=== PATIENT | female | born 1960 | race Caucasian/White ===

== ENCOUNTER 2016-06-13 17:27 | Emergency (ER) | payer BC ==
[2016-06-13 18:14] VITALS: TEMP 97.8
--- NOTE | 2016-06-13 18:33 | ED ---
General Adult HPI - General Chief complaint: Burn/Smoke Inhalation Stated complaint: Burn, [facility] Time Seen by Provider: 06/13/16 18:05 Source: patient, RN notes reviewed Mode of arrival: ambulatory Limitations: no limitations - History of Present Illness Initial comments: This is a 55-year-old female presents with a burn to the right hand from hot water and coffee grounds. Patient states she was emptying the coffee pot when hot water from the coffee tray spilled on the right hand. Patient denies any numbness weakness or tingling. Patient has noticed small blisters to the palmar aspect of the right hand near the second MCP joint. Patient denies any recent fever, chills, shortness breath, chest pain, abdominal pain, nausea/ vomiting/diarrhea, back pain, numbness, tingling, hematuria, headache, or visual changes, or any other complaints. Review of Systems ROS Statement: Those systems with pertinent positive or pertinent negative responses have been documented in the HPI. ROS Other: All systems not noted in ROS Statement are negative. Past Medical History Past Medical History: No Reported History History of Any Multi-Drug Resistant Organisms: None Reported Additional Past Surgical History / Comment(s): thyroidectomy, CA of thyroid Past Psychological History: No Psychological Hx Reported Smoking Status: Never smoker Past Alcohol Use History: Occasional Past Drug Use History: None Reported General Exam - General Exam Comments Initial Comments: General: The patient is awake and alert, in no distress, and does not appear acutely ill. Neck: The neck is supple, there is no tenderness or JVD. Cardiovascular: There is a regular rate and rhythm. No murmur, rub or gallop is appreciated. Respiratory: Lungs are clear to auscultation, respirations are non-labored, breath sounds are equal. No wheezes, stridor, rales, or rhonchi. Musculoskeletal: Normal ROM, no tenderness. Strength 5/5. Sensation intact. Radial Pulses equal bilaterally 2+. Neurological: A&O x 3. CN II-XII intact, There are no obvious motor or sensory deficits. Coordination appears grossly intact. Speech is normal. Skin: There is mild erythema to the palmar aspect of the right hand just over the second and third MCP joints. There is also mild erythema over the second and third MCP joints on the dorsal aspect of the right hand. There is a small blister to the palmar aspect of the right hand approximately 0.5 cm. There is no drainage or open skin. Fink are less than 1% total body surface area. Skin is warm and dry. Psychiatric: Cooperative, appropriate mood & affect, normal judgment. Limitations: no limitations Course Vital Signs 06/13/16 18:13 Temperature 97.8 F Pulse Rate 82 Respiratory 16 Rate Blood Pressure 131/80 O2 Sat by Pulse 98 Oximetry Medical Decision Making - Medical Decision Making This is a 55-year-old female presents with a burn to the right hand. On physical exam There is mild erythema to the palmar aspect of the right hand just over the second and third MCP joints. There is also mild erythema over the second and third MCP joints on the dorsal aspect of the right hand. There is a small blister to the palmar aspect of the right hand approximately 0.5 cm. There is no drainage or open skin. Skin is warm and dry. Fink are less than 1% total body surface area. Discussed with the patient that this is consistent with a superficial partial thickness burn due to the blistering. Patient has ALLERGY to sulfa drugs so I discussed topical Neosporin to the area and to keep the burn covered with gauze. Patient has used Neosporin in the past and has no reaction with this. I discussed pain medication with the patient and she agrees that Tylenol and Motrin be sufficient for her pain. Discussed signs and symptoms of infection. Discussed return parameters. Discussed that patient follow up with her primary care physician in the next 1-2 days.Discussed that patient should follow up with PCP in one to 2 days or return to the [facility] for any worsening symptoms or for any further concerns. Patient and was also present in the room were receptive to this plan and patient will be discharged home. Disposition Clinical Impression: Superficial partial thickness burn of palm, Superficial partial thickness burn of digit of hand Disposition: HOME SELF-CARE Condition: Good Instructions: Second Degree Burn (ED) Additional Instructions: Please apply Neosporin to the affected areas 4 times per day and keep area covered. Please use [id number] Tylenol and or Motrin as needed for any pain. Please follow-up with family doctor in the next 2 days of symptoms have not improved. Please return to emergency room if the symptoms increase or worsen or for any other concerns. Referrals: Emmanuel Groves MD [Primary Care Provider] - 1-2 days Time of Disposition: 18:40
[2016-06-13 18:55] VITALS: BP 127/85; PULSE 80; RESP 18
== END 2016-06-13 18:55 | disposition home or self-care (01) ==
LOC: EC 17:27
DX: T23.251A Burn of second degree of right palm, initial encounter (principal); T31.0 Burns involving less than 10% of body surface; X10.0XXA Contact with hot drinks, initial encounter
CPT/HCPCS: 99283

== ENCOUNTER → 2017-02-22 | Outpatient (CLI) | payer BC | END | disposition home or self-care (01) | LOC: LABWHC1 12:31 | PROVIDERS: ATTEND Internal Medicine | DX: C73 Malignant neoplasm of thyroid gland (principal) | CPT/HCPCS: 36415; 84439; 84443 ==

== ENCOUNTER 2017-04-15 11:44 | Day surgery (SDC) | payer BC ==
[2017-04-12 08:44] VITALS: BMI 29.2
[~2017-04-15 11:44] MED LIST: LACTATED RINGERS 1,000 ML IV SCH
[2017-04-15 12:33] VITALS: RESP 16; TEMP 97.7
[2017-04-15] MEDS ORDERED: LIDOCAINE 1% 20 ML VIAL (10MG/ML) FOR IV START INTRADERMA ONE (12:38)
[2017-04-15] MEDS ORDERED: LIDOCAINE 1% INJ 10MG/ML (20 ML MDV) ONE (13:08)
[2017-04-15] MEDS ORDERED: fentaNYL (PF) 50 MCG/ML 2 ML AMP ONE (13:08)
[2017-04-15] MEDS ORDERED: PROPOFOL 10 MG/ML 20 ML VIAL IV ONE (13:08)
--- NOTE | 2017-04-15 13:20 | P.GSHP ---
History of Present Illness H&P Date: 04/15/17 Chief Complaint: GERD Patient here today for upper endoscopy. She has a personal history of chronic reflux. Recently she has had complaints of sore throat and a sensation of swelling in the left neck region. She was referred by ENT. Per the patient her indirect laryngoscopy was normal. Past Medical History Past Medical History: Cancer, GERD/Reflux Additional Past Medical History / Comment(s): hx of thyroid ca History of Any Multi-Drug Resistant Organisms: None Reported Past Surgical History: Section Additional Past Surgical History / Comment(s): thyroidectomy, Past Anesthesia/Blood Transfusion Reactions: No Reported Reaction Smoking Status: Never smoker - Past Family History Father Family Medical History: Cancer Sister(s) Family Medical History: Cancer Medications and Allergies Home Medications Medication Instructions Recorded Confirmed Type Levothyroxine Sodium [Synthroid] 75 mcg PO DAILY 04/12/17 04/12/17 History Omeprazole/Sodium Bicarbonate 1 each PO DAILY 04/12/17 04/12/17 History [Zegerid 20 mg Capsule] Allergies Allergy/AdvReac Type Severity Reaction Status Date / Time Sulfa (Sulfonamide Allergy Rash/Hives Verified 04/12/17 08:39 Antibiotics) sulfamethoxazole Allergy Rash/Hives Verified 04/12/17 08:39 [From Bactrim] trimethoprim [From Bactrim] Allergy Rash/Hives Verified 04/12/17 08:39 Surgical - Exam Vital Signs Temp Pulse Resp BP Pulse Ox 97.7 F 74 16 150/85 98 04/15/17 12:30 04/15/17 12:30 04/15/17 12:30 04/15/17 12:30 04/15/17 12:30 Physical exam: General: Well-developed, well-nourished HEENT: Normocephalic, sclerae nonicteric Abdomen: Nontender, nondistended Extremities: No edema Neuro: Alert and oriented Assessment and Plan (1) GERD (gastroesophageal reflux disease) Narrative/Plan: Will proceed with upper endoscopy Current Visit: Yes Status: Acute Code(s): K21.9 - GASTRO-ESOPHAGEAL REFLUX DISEASE WITHOUT ESOPHAGITIS SNOMED Code(s): 198204140
--- NOTE | 2017-04-15 13:28 | P.PCN ---
Date of Procedure: 04/15/17 Procedure(s) Performed: Preoperative Dx: GERD Postoperative Dx: Mild gastritis, small hiatal hernia Procedure: EGD with Bx Anesthesia: Sedation Endoscopist: Dr. Gamboa Specimens: Antrum Endoscopic Procedure: The patient was on the endoscopy table in the left decubitus position. The Olympus gastroscope was inserted into the oropharynx and passed under direct visualization to the region of the third portion of the duodenum. From that point the scope was slowly withdrawn inspecting all surfaces carefully. There were no neoplastic inflammatory or polypoid lesions throughout the duodenum. The pylorus was widely patent. The stomach was carefully inspected. There was mild gastritis present. A biopsy of the antrum took place to rule out H. pylori. Retroflexion revealed a small sliding hiatal hernia. The esophagus was then carefully examined. There were no neoplastic inflammatory or polypoid lesions throughout the visualized esophagus. The patient was then taken to the recovery room in stable condition per anesthesia guidelines. Recommendations: Continue antiacid therapy. Await biopsy results.
[2017-04-15 13:45] VITALS: BP 126/86; PULSE 79
== END 2017-04-15 14:04 | disposition home or self-care (01) ==
LOC: ORWHC2ENDO 11:44
PROVIDERS: ATTEND Surgery
DX: K21.9 Gastro-esophageal reflux disease without esophagitis (principal); K29.50 Unspecified chronic gastritis without bleeding; K44.9 Diaphragmatic hernia without obstruction or gangrene; E89.0 Postprocedural hypothyroidism; Z88.2 Allergy status to sulfonamides; Z88.1 Allergy status to other antibiotic agents; Z79.899 Other long term (current) drug therapy; Z85.850 Personal history of malignant neoplasm of thyroid; Z80.9 Family history of malignant neoplasm, unspecified
CPT/HCPCS: 43239; 88305; 88342; J2001; J3010; J2704

== ENCOUNTER → 2017-05-23 | Outpatient (CLI) | payer BC | END | disposition home or self-care (01) | LOC: LABWHC1 13:44 | PROVIDERS: ATTEND Internal Medicine | DX: C73 Malignant neoplasm of thyroid gland (principal) | CPT/HCPCS: 36415; 84439; 84443 ==

== ENCOUNTER → 2017-06-04 | Outpatient (CLI) | payer BC ==
--- NOTE | 2017-06-04 14:42 | CT ---
EXAMINATION TYPE: CT soft tissue neck w con DATE OF EXAM: 06/04/2017 COMPARISON: NONE HISTORY: History of thyroid cancer. Chronic laryngeal pain for [address] DLP: 247.70 mGycm CONTRAST: Patient injected with 100 ml mL of Omnipaque 300. TECHNIQUE: Axial images at 3 mm thick sections. Reconstructed images in the coronal plane and sagitt al plane are reviewed. FINDINGS: Limited CT sections are obtained the lung apices. The lung apices appear clear. CT neck: The torus tubarius and fossa of Rosenmuller are normal. Leather Tooler spaces are normal. Para nasal sinuses and mastoid air cells are clear. Parotid glands appear normal and symmetrical. Submandibular glands, are normal. Parapharyngeal spac es are normal. No suspicious adenopathy is evident. The hypopharynx appears within normal limits. Vocal cord level appear symmetrical. Thyroid is not visualized compatible with the patient's surgical history. Subglottic airway appears u nremarkable. Osseous structures are normal. There is some degenerative disc changes with loss of disc height withi n the cervical spine. IMPRESSIONS: 1. No acute abnormality soft tissue neck
== END | disposition home or self-care (01) ==
LOC: RADCTMAIN 13:29
PROVIDERS: ATTEND Otolaryngology
DX: R07.0 Pain in throat (principal); Z85.850 Personal history of malignant neoplasm of thyroid
CPT/HCPCS: 70491; Q9967

== ENCOUNTER → 2017-10-28 | Outpatient (CLI) | payer BC ==
--- NOTE | 2017-10-28 09:19 | MM ---
Reason for exam: clinical finding. Last mammogram was performed 2 years and 8 months ago. History: Patient is postmenopausal, has history of other cancer at age 49, and had first child at age 34. Took estrogen for 3 months. Indicated problem(s): pain in the left breast. Physical Findings: Nurse did not find any significant physical abnormalities on exam. MG Diagnostic Mammo w CAD MOLINA Bilateral CC and MLO view(s) were taken. Prior study comparison: March 10, 2015, bilateral MG 3d diag mammo w/cad MOLINA. May 11, 2013, CAD bilateral diagnostic mammogram. The breast tissue is heterogeneously dense. This may lower the sensitivity of mammography. Left breast upper outer quadrant focal asymmetry corresponds to a sonographic cyst. These results were verbally communicated with the patient and result sheet given to the patient on 10/28/17. ASSESSMENT: Benign, BI-RAD 2 RECOMMENDATION: Routine screening mammogram of both breasts in 1 year. Manage on a clinical basis with regard to pain.
--- NOTE | 2017-10-28 09:21 | USB ---
Reason for exam: clinical finding. History: Patient is postmenopausal, has history of other cancer at age 49, and had first child at age 34. Took estrogen for 3 months. Indicated problem(s): pain in the left breast. US Breast LT Left complete breast ultrasound includes all four quadrants, the retroareolar region and axilla. Finding demonstrates a 1.3 x 1.1 x 1.7cm oval, cystic lesion at 2 o'clock. These results were verbally communicated with the patient and result sheet given to the patient on 10/28/17. ASSESSMENT: Benign, BI-RAD 2 RECOMMENDATION: Routine screening mammogram of both breasts in 1 year. Manage on a clinical basis with regard to pain.
== END | disposition home or self-care (01) ==
LOC: RADMAMWWP 08:05
PROVIDERS: ATTEND Obstetrics & Gynecology
DX: N64.4 Mastodynia (principal)
CPT/HCPCS: 77066